=== PATIENT | male | born 1960 | race Caucasian/White ===

== ENCOUNTER 2016-09-13 20:39 | Observation (INO) | payer MEDICARE, OTHER ==
--- NOTE | ~2016-09-13 | HP ---
History And Physical [place] [address] [facility] [place]. [address] NAME: CHRISTINA KINSEY : 58 STATUS : ADM Graham PAT#: [id number] AGE: 56 ADM/REG DATE : 09/14/16 MR#: [id number] REPORT SERV DATE: 09/14/16 DICTATED BY: DIONTE CALLAHAN DATE: 09/14/16 REPORT STATUS : Draft TRANSCRIBED BY: MODL DATE: 09/14/16 DATE OF ADMISSION: 09/14/2016 CHIEF COMPLAINT: Shortness of breath and headache. HISTORY OF PRESENT ILLNESS: This is a 56-year-old male with a history of COPD, hypertension, and gastroesophageal reflux disease, who presents to the emergency room at [facility] for the above-mentioned complaint. History is obtained from the patient and reviewing data available on the [employer]. According to Mr. Kinsey, he had been in his usual state of health until about a week or so ago when he started having shortness of breath. Since then, he has also been working on an old garage to empty it and fix it up. He says it was a lot of dust and other things, maybe mold that he has been cleaning out. This probably contributed to worsening of his condition as well and today, he could not breathe at all and decided to come to the emergency room. He has also had a headache for a day and a half as well. In the emergency room, he was found to be hypoxic on room air, started on supplemental oxygen therapy, which has cleared up his headache. He also continues to have expiratory wheezes bilaterally despite several administrations of bronchodilator treatments. Hospitalist Service is asked to admit him for further evaluation and treatment. At the time of my evaluation, he denied any chest pain, palpitations, or orthopnea. He had no cough, hemoptysis, night sweats, or weight loss. He denied any fever, chills, nausea, vomiting, or diarrhea. He has not had any falls or loss of consciousness recently. Denied any bleeding from anywhere. He has not had any other travel or exposure other than those mentioned above. PAST MEDICAL HISTORY: Significant for history of COPD, hypertension, osteoarthritis, and gastroesophageal reflux disease. SOCIAL HISTORY: He has about 50- to 90-uyxt-nyiy history of smoking. Continues to do so. He and his smoke and they smoke inside the house. FAMILY HISTORY: Noncontributory. MEDICATIONS: His medications at home were reviewed by me in the chart today and reordered by me. REVIEW OF SYSTEMS: As in history of present illness. All other systems were reviewed in detail and are quite unremarkable. HISTORY OF PRESENT ILLNESS: GENERAL: This is a pleasant 56-year-old, not in any acute distress. HEENT: His head is atraumatic, normocephalic. He is alert, awake, and oriented to time, History And Physical [address] [address] NAME: CHRISTINA KINSEY : 58 STATUS : ADM Graham PAT#: [id number] AGE: 56 ADM/REG DATE : 09/14/16 MR#: [id number] REPORT SERV DATE: 09/14/16 DICTATED BY: DIONTE CALLAHAN DATE: 09/14/16 REPORT STATUS : Draft TRANSCRIBED BY: MODL DATE: 09/14/16 place, and person. Pupils are equal, reacting to light and accommodating. External ocular muscles are intact. Membranes are moist and pink. Sclera are nonicteric. NECK: Supple with no jugular venous distention, lymphadenopathy, or thyromegaly. LUNGS: Auscultation of his lungs revealed diminished air entry bilaterally with bilateral expiratory wheezes as well. There were no rales. Trachea appeared to be in the midline. HEART: Auscultation of his heart revealed normal rate and rhythm with no murmurs, rubs, or gallops. ABDOMEN: Soft and nontender. Bowel sounds are present. EXTREMITIES: Showed no cyanosis, clubbing, or edema. NEURO: Grossly intact. No focal sensory or motor deficits. Higher functions appeared intact. Gait was not examined. VITAL SIGNS: His vital signs today showed a temperature of 98.8, pulse 80, respirations 22 a minute, blood pressure was 150/80, oxygen saturations were 95% breathing 2 L of oxygen via nasal cannula. LABORATORY DATA: Reviewed on the [employer] showed a pH of 7.32. On arterial blood gas, pCO2 was 48, PO2 was 58, bicarb was 24.6, this was on room air. CBC was essentially within normal limits. Glucose was 154. His troponin today was not checked. CBC showed a white blood cell count of 6600, hemoglobin was 13.5, hematocrit 39.8, and platelet count was 205,000. Urinalysis was not done today in the ER. Films of the chest x-ray were reviewed by me on the PACS today and interpreted by me. Per my interpretation, there is normal bony architecture with no cardiomegaly. Lung baig appeared clear with no lobar consolidations or effusions. A 12-lead EKG done in the emergency room was reviewed and interpreted by me. There is normal sinus rhythm with a rate of [address] elevations. IMPRESSION: 1. Shortness of breath. 2. Chronic obstructive pulmonary disease with acute exacerbation. 3. Acute hypoxic respiratory failure. 4. Acute respiratory acidosis. 5. Tobacco use. 6. Hypertension. 7. Osteoarthritis. 8. Gastroesophageal reflux disease. PLAN: We will admit Mr. Kinsey to the Hospitalist Service with cardiac telemetry for a 24-hour observation period. We will maximize bronchodilator treatments, continue supplemental oxygen therapy, start him on steroids intravenously and inhaled. We will reevaluate him once he is better for home oxygen needs. We will continue all other home medications and treatments at this time. He will be on unfractionated heparin for DVT prophylaxis while here. I have discussed the above plans with the patient. His questions were answered and he is agreeable to the above recommendations. Hospitalist Service will be following him during his stay here. History And Physical [address] [address] NAME: CHRISTINA KINSEY : 58 STATUS : ADM Graham PAT#: [id number] AGE: 56 ADM/REG DATE : 09/14/16 MR#: [id number] REPORT SERV DATE: 09/14/16 DICTATED BY: DIONTE CALLAHAN DATE: 09/14/16 REPORT STATUS : Draft TRANSCRIBED BY: ALEX DATE: 09/14/16 /ALEX Dionte Callahan M.D. / [id number] CC: Vinod Carpenter MD
--- NOTE | ~2016-09-13 | DS ---
Discharge Summary [facility] [address] [place]. [address] NAME: CHRISTINA KINSEY : 58 STATUS : DIS Graham PAT#: [id number] AGE: 56 ADM/REG DATE : 09/14/16 MR#: [id number] REPORT SERV DATE: 09/15/16 DICTATED BY: EDWAR ARAUJO DATE: 09/14/16 REPORT STATUS : Draft TRANSCRIBED BY: ALEX DATE: 09/14/16 ADMISSION DATE: 09/14/2016 DISCHARGE DATE: 09/14/2016 CONSULTATION: None. DISCHARGE DIAGNOSES: 1. Chronic obstructive pulmonary disease with acute exacerbation. 2. Acute hypoxic respiratory failure secondary to chronic obstructive pulmonary disease exacerbation. 3. Hypertension. 4. Dyslipidemia. 5. Gastroesophageal reflux disease. 6. History of degenerative disc disease, history of herniated disc of the lumbar spine. 7. Chronic pain medication use. DISCHARGE CONDITION: Stable. HISTORY OF PRESENT ILLNESS: For detailed HPI please make reference to Dr. Dionte Bermudez's dictation on 09/14/2016. In summary, this is a 56-year-old gentleman with medical history of COPD, hypertension, gastroesophageal reflux disease, who presented to the emergency room department with complaints of shortness of breath. The patient reported that he was working on an old garage when he got exposed to dust like materials with some possible mold content and subsequently developed significant wheezing and shortness of breath and decided to come to the emergency room for further evaluation. In the emergency room, blood pressure was 150/80, he was saturating 95% on 2 L of oxygen. An ABG was done that shows the patient was significantly hypoxic with a PaO2 of 58, PaCO2 of 48, and a pH of 7.3. An assessment of acute respiratory failure secondary to COPD exacerbation was made in the ER, the patient was admitted to the Hospitalist Service under observation Unit. HOSPITAL COURSE: 1. Acute respiratory failure secondary to COPD exacerbation. The patient was started on IV methylprednisone. Ceftriaxone and azithromycin were added to patient's medication. The patient has received DuoNeb treatment. Spiriva and Symbicort were also added. The patient's wheezing subsequently improved. Also, the patient also had a dramatic improvement in his shortness of breath. The patient noted that given significant improvement in his wheezing and shortness of breath, that he would like to be discharged home. However, prior to discharge, home O2 evaluation was done. The patient was noted to have met criteria for need for home O2. The patient was subsequently discharged to continue home oxygen and follow up with primary care physician. The patient was discharged to continue prednisone 40 mg p.o. daily for 4 days, azithromycin 250 mg p.o. daily for 4 days. Spiriva, albuterol, and Symbicort were also added to the patient's medication. The patient was advised to follow up with Discharge Summary [address] [place]. [address] NAME: CHRISTINA KINSEY : 58 STATUS : DIS Graham PAT#: [id number] AGE: 56 ADM/REG DATE : 09/14/16 MR#: [id number] REPORT SERV DATE: 09/15/16 DICTATED BY: EDWAR ARAUJO DATE: 09/14/16 REPORT STATUS : Draft TRANSCRIBED BY: ALEX DATE: 09/14/16 primary care physician within one week of discharge. 2. Chronic rash. The patient also reported some rash on his upper middle back which has been going on for about a week prior to presentation. The patient reported that the rash is not getting worse at this time. The patient said he will follow up with primary care physician as an outpatient for this rash. No medication was prescribed at this time for this rash. No evidence of allergies to any medication during this admission. No associated fever or chills. No exposure to any medication that patient may have been allergic to throughout the course of this admission. The patient was advised to follow up with PCP as an outpatient. DISCHARGE DISPOSITION: Home. DISCHARGE ACTIVITY: As tolerated. DISCHARGE DIET: Low-salt diet. Greater than 30 minutes was used to prepare this patient's discharge, reconcile medication, advise the patient on discharge plans, and followup. IOO/MODL Edwar Araujo MD / [id number] CC: MD Erick Kim M.D.
[2016-09-13 17:48] LABS: BASOPHILS 0.3 %; BASOPHILS ABSOLUTE 0.02 10/3/uL (0.0-0.16); EOSINOPHILS 1.7 %; EOSINOPHILS ABSOLUTE 0.11 10/3/uL (0.0-0.53); HEMATOCRIT 39.8 % (40.0-51.0); HEMOGLOBIN 13.5 g/dL (13.6-17.8); IMMATURE GRANULOCYTES 0.2 %; IMMATURE GRANULOCYTES ABSOLUTE 0.01 10/3/uL (0.0-0.11); LYMPHOCYTES 10.6 %; MANUAL DIFF NO %; MEAN CORPUS HGB CONC 33.9 g/dL (32.0-36.0); MEAN CORPUSCULAR VOLUME 85.4 fL (80-100); MEAN PLATELET VOLUME 10.7 fL (9.2-13.0); MONOCYTES 12.1 %; NEUTROPHILS 75.1 %; NEUTROPHILS ABSOLUTE 4.96 10/3/uL (2.02-8.40); PLATELET COUNT 205 10/3/uL (150-400); RBC DISTRIBUTION WIDTH 13.3 % (12.0-16.0); RED CELL COUNT 4.66 10/6/uL (4.7-6.1); WHITE BLOOD CELLS 6.6 10/3/uL (4.5-10.5)
[2016-09-13 18:04] LABS: A/G RATIO 0.9 (0.7-1.9); ALBUMIN 3.7 G/DL (3.5-5.0); ALKALINE PHOSPHATASE 71 U/L (45-117); CALCIUM, SERUM 8.7 MG/DL (8.5-10.4); CHLORIDE, SERUM 103 MMOL/L (96-112); CO2 (CARBON DIOXIDE) 25 MMOL/L (24-34); GFR AFRICAN AMERICAN 86 ML/MIN (>=60); GFR NON AFRICAN AMERICAN 74 ML/MIN (>=60); GLOBULIN 4.1 G/DL (2.5-4.1); GLUCOSE, SERUM 154 MG/DL (60-99); POTASSIUM, SERUM 4.2 MMOL/L (3.5-5.3); SGOT(AST) 21 U/L (5-40); SGPT(ALT) 24 U/L (5-65); TOTAL BILIRUBIN 0.4 MG/DL (0-1.2); TOTAL PROTEIN 7.8 G/DL (6.0-8.5)
[2016-09-13 18:05] LABS: BUN (BLOOD UREA NITROGEN) 14 MG/DL (6-23); SODIUM, SERUM 136 MMOL/L (135-148)
[~2016-09-13 20:39] MED LIST: ADVIL PO; AMB10 PO; ASAB PO; BACLOFEN20 MG PO; CALCIUM/MAG/ZINC PO; CENTRUM SILVER PO; CENTRUM TAB1 TAB PO; COZ25 PO; DURA100 TOP; DURA75 TOP; FLECTOR1.3 % TOP; FLOMAX4 PO; FLONASE NAS; HALF81 PO; HCTZ25B PO; KLONO2 PO; LIDODERM T; LIPITOR40 PO; LOFIBRA160 MG PO; LOTREL1 CA2 PO; METHATAB10 PO; NIASPAN500 PO; NORCO1 TAB PO; PREV30 PO; PRIN20 PO; PROSCAR5 PO; SOMATAB PO; TRAZ50 PO; UROXATRAL PO; VIB100 PO; ZESTORETIC1 TA1 PO
[2016-09-13 21:14] LABS: BE (BASE EXCESS) -1.9 MEQ/L (0 +/- 2.5); CARBOXYHEMOGLOBIN 5.1 % (0-3); HCO3 (ACTUAL BICARBONATE) 24.6 MEQ/L (23-27); HEMOBLOGIN CONTENT 13.7 G/DL (14-18); INSTRUMENT SERIAL # 8087; METHEMOGLOBIN 0.2 % (0-3); O2 CONTENT 16.3 VOL% (18-24); OPERATOR ID 17589; PCO2 (CO2 TENSION) 48 MMHG (35-45); PO2 (O2 TENSION) 58 MMHG (79-93); SAMPLE Arterial; pH 7.32 (7.37-7.43)
[2016-09-13] MEDS ORDERED: LOTREL1 CA5 PO (23:43)
[2016-09-13] MEDS ORDERED: SEROQUEL1C PO (23:43)
[2016-09-13] MEDS ORDERED: LUNESTA2 M1 PO (23:43)
[2016-09-13] MEDS ORDERED: LOFIBRA160 MG PO (23:43)
[2016-09-13] MEDS ORDERED: SKELAXIN8 PO (23:45)
[2016-09-13] MEDS ORDERED: LYRICA150 MG PO (23:45)
[2016-09-13] MEDS ORDERED: BYSTOLIC10 MG PO (23:46)
[2016-09-13] MEDS ORDERED: MSCONT60 PO (23:47)
[2016-09-13] MEDS ORDERED: NORCO1 TAB PO (23:47)
[2016-09-13] MEDS ORDERED: BEN25 PO (23:48)
[2016-09-13] MEDS ORDERED: LIPITOR40 PO (23:48)
[2016-09-13] MEDS ORDERED: ADVIL PO (23:48)
[2016-09-13] MEDS ORDERED: PRILO PO (23:49)
[2016-09-14 03:49] LABS: BASOPHILS 0.3 %; BASOPHILS ABSOLUTE 0.01 10/3/uL (0.0-0.16); EOSINOPHILS 0.3 %; EOSINOPHILS ABSOLUTE 0.01 10/3/uL (0.0-0.53); HEMATOCRIT 40.3 % (40.0-51.0); HEMOGLOBIN 13.7 g/dL (13.6-17.8); LYMPHOCYTES 13.6 %; LYMPHOCYTES ABSOLUTE 0.45 10/3/uL (0.67-4.30); MEAN CORPUSCULAR VOLUME 85.4 fL (80-100); MEAN PLATELET VOLUME 10.8 fL (9.2-13.0); MONOCYTES 5.1 %; MONOCYTES ABSOLUTE 0.17 10/3/uL (0.21-1.20); NEUTROPHILS 80.7 %; NEUTROPHILS ABSOLUTE 2.68 10/3/uL (2.02-8.40); PLATELET COUNT 203 10/3/uL (150-400); RBC DISTRIBUTION WIDTH 13.1 % (12.0-16.0); RED CELL COUNT 4.72 10/6/uL (4.7-6.1)
[2016-09-14 03:50] LABS: MANUAL DIFF NO %; WHITE BLOOD CELLS 3.3 10/3/uL (4.5-10.5)
[2016-09-14 04:11] LABS: BUN (BLOOD UREA NITROGEN) 16 MG/DL (6-23); CALCIUM, SERUM 8.9 MG/DL (8.5-10.4); CHLORIDE, SERUM 105 MMOL/L (96-112); CO2 (CARBON DIOXIDE) 28 MMOL/L (24-34); CREATININE 0.96 MG/DL (0.70-1.30); GFR AFRICAN AMERICAN 101 ML/MIN (>=60); GFR NON AFRICAN AMERICAN 87 ML/MIN (>=60); POTASSIUM, SERUM 4.3 MMOL/L (3.5-5.3); SODIUM, SERUM 141 MMOL/L (135-148)
[2016-09-14 04:12] LABS: GLUCOSE, SERUM 209 MG/DL (60-99); PHOSPHORUS, SERUM 2.1 MG/DL (2.5-4.5)
[2016-09-14] MEDS ORDERED: PRED50B PO (18:02)
[2016-09-14] MEDS ORDERED: Z-PAK PO (18:03)
[2016-09-14] MEDS ORDERED: SPIRIVA INH (18:04)
[2016-09-14] MEDS ORDERED: VENTOLIN HFA INH (18:05)
[2016-09-14] MEDS ORDERED: SYMBICORT 160/41 INH INH (18:05)
== END 2016-09-14 18:00 | disposition home or self-care (01) ==
LOC: ER 20:39 → CDU1 09-14 00:24
PROVIDERS: Emergency Medicine; Hospitalist
DX: J44.1 Chronic obstructive pulmonary disease with (acute) exacerbation (principal); J96.01 Acute respiratory failure with hypoxia; I10 Essential (primary) hypertension; K21.9 Gastro-esophageal reflux disease without esophagitis; M19.90 Unspecified osteoarthritis, unspecified site; E78.5 Hyperlipidemia, unspecified; M51.36 Other intervertebral disc degeneration, lumbar region; R21 Rash and other nonspecific skin eruption
CPT/HCPCS: 36600; 71020; 80048; 80053; 82805; 83735; 84100; 85025; 87040; 87449; 93005; 94640; 96372; 96374; 96375; 96376; 99285; A9270-GY; G0378; J0456; J2930